=== PATIENT | female | born 1995 | race Caucasian/White ===

== ENCOUNTER 2023-01-17 04:30 | Inpatient (IN) | payer OTHER, SELFPAY ==
[2023-01-17] VITALS (105 sets, daily range): BP systolic 75–169; BP diastolic 41–155; PULSE 25–221; RESP 16–20; TEMP 36.4–37.1; O2SAT 64–100; BMI 28.5
[2023-01-17] MEDS: LACTATED RINGERS 1,000 ML 125 ML IV CONT ×3 (04:55→06:37)
[2023-01-17 05:02] LABS: Basophils Percent Auto 0.2 % (0.2-1.2); Eosinophils Absolute Auto 0.1 K/mm3 (0-0.3); Eosinophils Percent Auto 0.5 % (0-4.4); Hematocrit 40.7 % (37.0-47.0); Hemoglobin 13.7 g/dL (12.0-15.0); Immature Granulocyte Absolute 0.05 K/mm3 (0.00-0.031); Immature Granulocyte Percent A 0.5 % (0-0.5); Lymphocytes Absolute Auto 1.97 K/mm3 (0.9-3.2); Lymphocytes Percent Auto 17.8 % (18.3-44.2); Mean Corpuscular HGB Conc 33.7 g/dl (32-36); Mean Corpuscular Volume 92.1 fl (80-100); Monocytes Absolute Auto 0.6 K/mm3 (0.1-0.6); Monocytes Percent Auto 5.2 % (2.6-8.5); Neutrophils Absolute Auto 8.4 K/mm3 (1.3-6.7); Neutrophils Percent Auto 75.8 % (45.5-73.1); Platelet Count Result 200 k/mm3 (150-375); Red Blood Count 4.42 M/mm3 (4.2-5.4); Red Cell Distribution Width 13.2 % (11.5-14.5); White Blood Count 11.1 K/mm3 (4.5-10.0)
--- NOTE | 2023-01-17 05:23 | WPDANESEPPF ---
Anes - Initial Pre Proc Eval Procedure: Labor Epidural Date/Time: 01/17/23 05:23 Surgeon: Wes Keys MD Pre Op Diagnosis: Labor pain Pre Op Diagnosis: Contractions Patient Data Age: 27 Gender: F Height: 1.6 m Weight: 73 kg Last Vital Signs Pulse Ox 100 01/17/23 05:19 Allergies Allergy/AdvReac Type Severity Reaction Status Date / Time No Known Allergies Allergy Verified 07/23/22 10:07 Home Medications Medication Instructions Recorded Confirmed Type levothyroxine 112 mcg tablet 112 mcg PO DAILY #90 tabs 09/19/22 01/17/23 Rx (Synthroid) prenat.vits,will,iwl-oelv-htwar 1 tablet PO HS 12/21/22 12/21/22 History Laboratory Tests 01/17/23 04:54 WBC 11.1 H K/mm3 (4.5-10.0) RBC 4.42 M/mm3 (4.2-5.4) Hgb 13.7 g/dL (12.0-15.0) Hct 40.7 % (37.0-47.0) MCV 92.1 fl (80-100) MCH 31.0 pg (26-34) MCHC 33.7 g/dl (32-36) RDW 13.2 % (11.5-14.5) Plt Count 200 k/mm3 (150-375) MPV 11.0 H fl (7.4-10.4) Immature Gran % (Auto) 0.5 % (0-0.5) Neut % (Auto) 75.8 H % (45.5-73.1) Lymph % (Auto) 17.8 L % (18.3-44.2) [place] % (Auto) 5.2 % (2.6-8.5) Eos % (Auto) 0.5 % (0-4.4) Baso % (Auto) 0.2 % (0.2-1.2) Lymph # (Auto) 1.97 K/mm3 (0.9-3.2) [place] # (Auto) 0.6 K/mm3 (0.1-0.6) Eos # (Auto) 0.1 K/mm3 (0-0.3) Baso # (Auto) 0.0 K/mm3 (0.0-0.1) Abs Immat Gran (auto) 0.05 H K/mm3 (0.00-0.031) Absolute Neuts (auto) 8.4 H K/mm3 (1.3-6.7) Absolute Nucleated RBC 0.0 K/mm3 (0.0-0.012) Nucleated RBC % 0.0 % (0.0-0.2) RPR Pending Patient hx anesthesia problems: none Family hx anesthesia problems: none Results Review: All pre-operative results and documents have been reviewed as part of the pre-operative evaluation. [facility] Past Medical History Medical History Autoimmune thyroiditis Blood type A+ Eczema Generalized anxiety disorder Hypothyroidism Nontoxic diffuse goiter Overweight (BMI 25.0-29.9) Family History Family History Sibling Diabetes mellitus Father Family history of mental disorder Hypertension Mother Family history of anemia Grandparent Family history of mental disorder Social History Social History Smoking status: Never smoker Second hand tobacco smoke exposure: No Alcohol intake: never Substance use: never Lack of Transportation: No Lack of Food: Never True Current Housing: I Have Housing Concerned About Future Housing: No Difficulty Paying Gas/Electric Bills: No Difficulty Paying for Meds: No Currently Unemployed: No Education: High School Diploma/GED Difficulty w/ Childcare or Family Care: No Gender identity (if verbalized by the patient): Female Spiritual care concerns: No Anes - Eval Final PreProcedure Day of Procedure 01/17/23 05:23 Patient weight: normal Heart: regular rate and rhythm Lungs: clear to auscultation Airway: Mallampati scale class II Neurological: alert and oriented ASA classification: II Emergent: no Anesthetic plan: proceed Anesthesia type and monitoring: regional epidural and standard monitoring Results Review: All pre-operative results and documents have been reviewed as part of the pre-operative evaluation. Informed Consent: The patient's anesthetic plan and its attendant risks and benefits were discussed with the patient/family/POA. Questions were solicited and answers provided to the satisfaction of the patient/family/POA.
[2023-01-17] MEDS: PHENYLEPHRINE 1,000 MCG/10 ML SYRINGE 100 MCG IV PUSH ×3 (05:49→06:18)
--- NOTE | 2023-01-17 05:49 | WPDANESEPN ---
Anes - Epidural Procedure Note Date/Time: 01/17/23 05:49 Consent: I have discussed with the patient/family/POA, the placement of an epidural catheter and the use of epidural narcotic/local anesthetic for labor analgesia and/or postoperative pain management, including associated potential risks, benefits, complications and side effects. I have discussed alternative methods of labor analgesia and/or postoperative pain management. The patient/family/POA, understand(s) and wish(es) to proceed with epidural narcotic/local anesthetic for labor analgesia and/or postoperative pain management. Time-Out: A pre-procedural Time-Out was completed immediately before starting the procedure and confirmed: Patient Identification, Site, Procedure, Patient Position and the Availability of Requisite Equipment. Clinical Indications: Labor Pain Epidural Insertion Note Patient position: sitting Skin prep: chlorhexidine and sterile drape Needle: 18g Tuohy-Schliff Catheter: 20g Unstyleted Technique: Loss of resistance. Level of insertion: L4/5 Catheter skin daisy (cm): 9 Length in epidural space (cm): 4 Skin anesthesia: lidocaine 1% Test dose: 1.5% Lidocaine with 1:[id number] Epi, negative for subarachnoid Inj and negative for intravascular Inj Time of test dose: 05:36 Observations: tolerated well Complications: none
--- NOTE | 2023-01-17 07:26 | LDADM ---
This patient, Rosy Best, was admitted to Labor/Delivery/Recovery 106 on 01/17/23 at 04:30. Plans for labor, pain management and were discussed with patient. Patient/family oriented to hospital policies and general routines including ID bracelet, bed and alarms, visiting hours, pain management, procedures, bathroom and other care routines, personal items, smoking policy, room service/diet and guest tray routines, security routines, and visiting hours. Patient/Family are encouraged to report perceived risks to care and to ask questions if they do not understand what they are told or what they should do. See OBIX for further documentation.
--- NOTE | 2023-01-17 07:43 | PM.IMHP ---
H&P: HPI History of Present Illness Date/Time: 01/17/23 07:43 Chief Complaint: Labor at term Narrative: 27-year-old 2 para 1 whose last menstrual was 04/20/2022, EDC is 01/18/2025, presents at 39 and 6 7 weeks gestation in active labor. She has negative group B strep in the has been uncomplicated PMFSH Past Medical History Medical History Autoimmune thyroiditis Blood type A+ Eczema Generalized anxiety disorder Hypothyroidism Nontoxic diffuse goiter Overweight (BMI 25.0-29.9) Family History Family History Sibling Diabetes mellitus Father Family history of mental disorder Hypertension Mother Family history of anemia Grandparent Family history of mental disorder Social History Social History Smoking status: Never smoker Second hand tobacco smoke exposure: No Alcohol intake: never Substance use: never Lack of Transportation: No Lack of Food: Never True Current Housing: I Have Housing Concerned About Future Housing: No Difficulty Paying Gas/Electric Bills: No Difficulty Paying for Meds: No Currently Unemployed: No Education: High School Diploma/GED Difficulty w/ Childcare or Family Care: No Gender identity (if verbalized by the patient): Female Spiritual care concerns: No Meds Home Medications and Allergies Home Medications Medication Instructions Recorded Confirmed Type levothyroxine 112 mcg tablet 112 mcg PO DAILY #90 tabs 09/19/22 01/17/23 Rx (Synthroid) prenat.vits,will,sdx-seki-mfrhu 1 tablet PO HS 12/21/22 12/21/22 History Allergies Allergy/AdvReac Type Severity Reaction Status Date / Time No Known Allergies Allergy Verified 07/23/22 10:07 Vital Signs Vital Signs - 24 hr 01/17/23 04:55 01/17/23 05:00 01/17/23 05:05 Temperature Pulse Rate Respiratory Rate Blood Pressure Pulse Oximetry 99 100 100 Oxygen Delivery 01/17/23 05:09 01/17/23 05:14 01/17/23 05:17 Temperature Pulse Rate Respiratory Rate Blood Pressure Pulse Oximetry 100 100 100 Oxygen Delivery 01/17/23 05:19 01/17/23 05:19 01/17/23 05:19 Temperature Pulse Rate Respiratory Rate Blood Pressure Pulse Oximetry 100 100 100 Oxygen Delivery 01/17/23 05:24 01/17/23 05:25 01/17/23 05:25 Temperature Pulse Rate 126 H 89 Respiratory Rate Blood Pressure 115/94 H 104/86 Pulse Oximetry 100 100 86 L Oxygen Delivery 01/17/23 05:27 01/17/23 05:28 01/17/23 05:29 Temperature Pulse Rate 104 H 93 Respiratory Rate Blood Pressure 85/56 L 108/74 Pulse Oximetry 100 84 L Oxygen Delivery 01/17/23 05:30 01/17/23 05:31 01/17/23 05:32 Temperature Pulse Rate 86 86 Respiratory Rate Blood Pressure 120/73 120/64 Pulse Oximetry 95 97 Oxygen Delivery 01/17/23 05:35 01/17/23 05:37 01/17/23 05:37 Temperature Pulse Rate 88 Respiratory Rate Blood Pressure 112/53 L Pulse Oximetry 97 96 Oxygen Delivery 01/17/23 05:39 01/17/23 05:40 01/17/23 05:42 Temperature Pulse Rate 92 85 83 Respiratory Rate Blood Pressure 122/61 119/56 L 122/56 L Pulse Oximetry 100 Oxygen Delivery 01/17/23 05:45 01/17/23 05:47 01/17/23 05:48 Temperature Pulse Rate 104 H 81 89 Respiratory Rate Blood Pressure 103/58 L 90/45 L 75/41 L Pulse Oximetry 100 Oxygen Delivery 01/17/23 05:50 01/17/23 05:52 01/17/23 05:55 Temperature Pulse Rate 63 62 84 Respiratory Rate Blood Pressure 103/56 L 115/50 L 108/75 Pulse Oximetry 100 Oxygen Delivery 01/17/23 05:57 01/17/23 05:59 01/17/23 06:00 Temperature Pulse Rate 68 68 91 Respiratory Rate Blood Pressure 117/56 L 133/64 110/61 Pulse Oximetry 100 Oxygen Delivery 01/17/23 06:02 01/17/23 06:06 05
[2023-01-17 09:02] LABS: Rapid Plasma Reagin Non-Reactive (NonReactive)
[2023-01-17] MEDS: OXYTOCIN 30 UNITS/NS 500 ML 30 UNITS/500 ML BAG 999 UNITS IV CONT (09:30)
--- NOTE | 2023-01-17 09:38 | PM.OBPRVD ---
OB - Delivery Note Procedure Delivery date: 01/17/23 Induction method: None Delivery monitor: External FHT and External Uterine Route of delivery: Episiotomy description: None Laceration Description: Perineal - 1st Degree Delivery repair: vicryl Specimen: No Quantitative Blood Loss (ml): 60 Anesthesia type: Epidural Disposition: Floor [place] Baby Date of : 01/17/23 Time of : 09:27 Weeks of gestation at delivery: 39 Infant gender: Male Weight (pounds): 7 Weight (ounces): 7 presentation: vertex position: Right Occiput Anterior Placenta delivery description: Spontaneous Cord Vessel Description: 3 Vessels and Delayed Cord Clamping score one minute: 9 score five minutes: 9
[2023-01-17] MEDS: OXYTOCIN 30 UNITS/NS 500 ML 30 UNITS/500 ML BAG 125 UNITS IV CONT (10:04)
--- NOTE | 2023-01-17 12:54 | PC.NURSE ---
Patient transferred to post room #280 via ( W/C ). Support person present. Oriented to unit, room, information board, rooming in, admission packet and security measures. Patient verbalizes understanding.
[2023-01-17] MEDS: IBUPROFEN 600 MG TABLET PO ×2 (14:31→21:03)
[2023-01-17] MEDS: DOCUSATE SODIUM 100 MG CAPSULE PO (16:42)
[2023-01-18 00:16] VITALS: BP 100/55; PULSE 61; RESP 16; TEMP 36.6; O2SAT 99
[2023-01-18] MEDS: ACETAMINOPHEN 325 MG TABLET 650 MG PO (00:33)
[2023-01-18 05:12] VITALS: BP 83/70; PULSE 70; RESP 18; TEMP 36.7; O2SAT 98
[2023-01-18 05:54] LABS: Hematocrit 36.1 % (37.0-47.0)
--- NOTE | 2023-01-18 08:18 | PM.DS ---
DS: Admitting Diagnosis Discharge Date 01/18/2023 Admitting Diagnosis term DS: Discharge Diagnosis Discharge Diagnosis (1) : Code(s): Z34.90 - Encounter for supervision of normal , unspecified, unspecified trimester Status: Acute DS: Summary Hospital Course Reason for hospitalization: active labor at term Hospital Course: this multiparous patient was admitted at term in active labor. Underwent spontaneous vaginal delivery. Her 24hour course was unremarkable. She remained afebrile. She was , voiding without difficulty, eating regular diet, ambulating, and generally without complaints. Time Spent with Patient Time attestation: Total time spent providing and/or coordinating discharge services: Exam Const: General: cooperative, healthy appearing, comfortable and well groomed Orientation/consciousness: oriented to person, oriented to place and oriented to time HENMT: Head: normal to inspection Resp: Effort & Inspection: normal respiratory effort Cardio: Rate: regular rate Rhythm: regular rhythm Heart sounds: S1 normal heart sound present and S2 normal heart sound present GI: Inspection: normal to inspection DS: Data Data Completed and Pending Labs on day of discharge: Labs from last 24 hours 01/18/23 01/17/23 05:29 04:54 Hgb 12.0 Hct 36.1 L RPR Non-reactive Discharge Plan Discharge Attending physician on discharge: Wes Mann Discharging Clinician: Wes Mann Patient Disposition: Home, Self-Care Activity: may shower and pelvic rest Diet: heart healthy Wound Care Instructions: follow printed instructions Patient Instructions: Antibiotic Form Stand Alone Forms: General Discharge Information Follow-up/Referrals: Wes Mann MD [Physician] - Discharge Medications: No Action #2 Tablet 1 tablet PO HS levothyroxine [Synthroid] 112 mcg tablet 112 mcg PO DAILY Qty: 90 1RF Date of admission: 01/17/23 04:30 Primary Care Provider: Walter Meehan Admitting Provider: Wes Mann Attending physician on admission: Wes Mann Condition: Stable
--- NOTE | 2023-01-18 08:21 | PM.OBPNVD ---
OB - PN: Subj Subjective Date/time seen: 01/18/23 08:21 Patient comments: no complaints and pain well controlled baby status: doing well and nursing well OB - PN: Obj Data Labs 01/18/23 05:29 Labs: Laboratory Results - last 24 hr 01/17/23 01/18/23 04:54 05:29 Hgb 12.0 Hct 36.1 L RPR Non-reactive OB - PN A/P Plan day: 1 Plan: routine care, discharge home and follow up 6 weeks Time Spent With Patient Time: Total time spent is greater than 50% in coordination of care (as documented) at patient's floor/unit and/or counseling patient: Time with patient: less than 15 minutes Exam Const: General: cooperative, healthy appearing, comfortable and well groomed Nutritional Appearance: average body habitus Orientation/consciousness: oriented to person, oriented to place and oriented to time HENMT: Head: normal to inspection Resp: Effort & Inspection: normal respiratory effort Cardio: Rate: regular rate Rhythm: regular rhythm Heart sounds: S1 normal heart sound present and S2 normal heart sound present GI: Inspection: normal to inspection
[2023-01-18 08:50] VITALS: BP 115/79; PULSE 72; RESP 18; TEMP 36.5; O2SAT 99
[2023-01-18] MEDS: DOCUSATE SODIUM 100 MG CAPSULE PO (08:58)
[2023-01-18] MEDS: MULTIVIT/MIN/PREN/FOL AC/IRON TABLET 1 TAB PO (08:58)
[2023-01-18] MEDS: IBUPROFEN 600 MG TABLET PO (08:58)
[2023-01-18] MEDS: LANOLIN (LANSINOH) 7.5 GM CREAM 1 APPLIC TOPICAL (08:59)
--- NOTE | 2023-01-18 12:00 | PC.NURSE ---
Patient viewed the discharge video Mother & Baby Care, The First Two Weeks . Patient was given the opportunity and encouraged to ask questions. Patient verbalized understanding of information shared and has been given the mother/baby guide for home reference.
[2023-01-21 09:27] VITALS: BP 116/71; PULSE 79; TEMP 36.3
== END 2023-01-18 13:11 | disposition home or self-care (01) | DRG 560 ==
LOC: ANHLDR 06:09 → ANHOB2 13:02
PROVIDERS: Admitting Provider Obstetrics & Gynecology; PCP Family Medicine; Visit Provider Obstetrics & Gynecology
DX: O70.0 First degree perineal laceration during delivery (principal); Z37.0 Single live birth; Z3A.39 39 weeks gestation of pregnancy
CPT/HCPCS: 36415; 85014; 85018; 85025; 86592; 86850; 86900; 86901; A9270; J2370; J2590; J2795; J7120

== ENCOUNTER 2023-04-13 10:39 | Emergency (ER) | payer MEDICAID, SELFPAY ==
--- NOTE | 2023-04-13 10:47 | ED.WOUNDLAC ---
HPI - Wound/Laceration General Chief Complaint: Wound/Laceration Stated Complaint: stitches reopened Time Seen by Provider: 04/13/23 10:52 Source: patient Mode of arrival: ambulatory Limitations: no limitations History of Present Illness HPI narrative: 27-year-old female presented for complaint of open wound to the right posterior shoulder. Patient had sutures removed from this site yesterday after a mole was removed by PCP 1 week prior. She states Steri-Strips were applied after the sutures were removed, however last night the Steri-Strips follow-up in the wound popped open. She endorses she has a 3-month-old and she is right-hand dominant. denies bleeding or drainage, pain, streaking or fever. Related Data Home Medications Medication Instructions Recorded Confirmed prenat.vits,will,fvr-djyu-qzrgy 1 tablet PO HS 12/21/22 04/13/23 Allergies Allergy/AdvReac Type Severity Reaction Status Date / Time No Known Allergies Allergy Verified 04/13/23 10:48 Review of Systems Review of Systems: CONSTITUTIONAL: Denies body aches, fever, chills, or sweats. EYES: Denies visual changes, redness, or discharge. ENT: Denies rhinorrhea, congestion CARDIOVASCULAR: Denies chest pain, palpitations, or edema. RESPIRATORY: Denies cough or dyspnea. GASTROINTESTINAL: Denies abdominal pain, nausea, vomiting, or diarrhea. SKIN: reports skin wound right shoulder MUSCULOSKELETAL: Denies back pain, joint pain, or myalgia. NEUROLOGIC: Denies headache, numbness, tingling, or weakness. [facility] Past Medical History Medical History Autoimmune thyroiditis Blood type A+ Eczema Generalized anxiety disorder Hypothyroidism Nontoxic diffuse goiter Overweight (BMI 25.0-29.9) Family History Family History Sibling Diabetes mellitus Father Family history of mental disorder Hypertension Mother Family history of anemia Grandparent Family history of mental disorder Social History Social History Smoking status: Never smoker Second hand tobacco smoke exposure: No Alcohol intake: never Substance use: never Lack of Transportation: No Lack of Food: Never True Current Housing: I Have Housing Concerned About Future Housing: No Difficulty Paying Gas/Electric Bills: No Difficulty Paying for Meds: No Currently Unemployed: No Education: High School Diploma/GED Difficulty w/ Childcare or Family Care: No Gender identity (if verbalized by the patient): Female Spiritual care concerns: No Comments At time of signature, I have reviewed and agree with nursing past medical, surgical, social and family history unless otherwise noted. Please see nursing chart for further information. There is no relevant family history pertinent to the presenting complaint Exam Narrative: GENERAL: Well-appearing HEAD: Normocephalic, atraumatic. EYES: conjunctivae clear, and EOMI. ENT: Mucous membranes moist. Oropharynx without edema, erythema or lesions. NECK: Supple. No lymphadenopathy CHEST: Clear to auscultation. HEART: Regular rate and rhythm. SKIN: Warm, dry. Right posterior shoulder with open wound [id number] gaping. No bleeding, drainage, warmth, induration or tenderness. NEURO: Alert and oriented x3. Extrem: Shoulder/upper arm images: 1. location of posterior shoulder open wound Course Course Emergency Course: Patient is aware of diagnosis, understands and agrees to treatment plan. Anticipatory guidance given. Patient agrees to follow-up as directed and is aware of reasons to seek care at the emergency department. Portions of this record may have been created with voice recognition software Level of Care: Express Care Visit Vital Signs Vital signs: Reviewed MDM - Wound/Laceration MDM Narrative Medical decision making narra
[2023-04-13 10:49] VITALS: BP 118/75; PULSE 56; RESP 16; TEMP 36.3; O2SAT 100
== END 2023-04-13 11:15 | disposition home or self-care (01) ==
PROVIDERS: Emergency Provider Nurse Practitioner Family; PCP Family Medicine
DX: T81.30XA Disruption of wound, unspecified, initial encounter (principal); E06.3 Autoimmune thyroiditis; E03.9 Hypothyroidism, unspecified
CPT/HCPCS: 99212; G0463

== ENCOUNTER 2024-01-08 09:19 | Day surgery (SDC) | payer OTHER, SELFPAY ==
[2023-12-18 11:58] VITALS: BMI 23.1
--- NOTE | 2024-01-08 07:37 | P.PNAN_ITS ---
Anes - Initial Pre Proc Eval Procedure: Operation Date: 01/08/24 10:30 Proposed Procedures p Colonoscopy - León Law MD Date/Time: 01/08/24 07:37 Surgeon: León Law MD Pre Op Diagnosis: Lft lower quadrant pain,constipation,IBS w/ Patient Data Age: 28 Gender: F Height: 1.6 m Weight: 58.967 kg Allergies Allergy/AdvReac Type Severity Reaction Status Date / Time No Known Allergies Allergy Verified 01/08/24 09:33 Home Medications Medication Instructions Recorded Confirmed Type levothyroxine 100 mcg tablet 100 mcg PO DAILY #90 tabs 07/29/23 01/08/24 Rx polyethylene glycol 3350 17 gram 17 g PO DAILY 12/24/23 01/08/24 History oral powder packet (Miralax) Patient hx anesthesia problems: none Family hx anesthesia problems: none Results Review: All pre-operative results and documents have been reviewed as part of the pre- operative evaluation. [facility] Past Medical History Medical History (Updated 01/08/24 @ 07:37 by Alvarado Kauffman DO) Anxiety Autoimmune thyroiditis Blood type A+ Eczema External hemorrhoid Generalized anxiety disorder Hypothyroidism Nontoxic diffuse goiter Overweight (BMI 25.0-29.9) Family History Family History Sibling Diabetes mellitus Father Family history of mental disorder Hypertension Mother Family history of anemia Grandparent Family history of mental disorder Social History Social History Smoking status: Never smoker Second hand tobacco smoke exposure: No Alcohol intake: never Substance use: never Substance use type: does not use Lack of Transportation: No Lack of Food: Never True Current Housing: I Have Housing Concerned About Future Housing: No Difficulty Paying Gas/Electric Bills: No Difficulty Paying for Meds: No Currently Unemployed: No Education: High School Diploma/GED Difficulty w/ Childcare or Family Care: No Gender identity (if verbalized by the patient): Female Spiritual care concerns: No Anes - Eval Final PreProcedure Day of Procedure 01/08/24 07:37 Patient weight: normal Heart: regular rate and rhythm Lungs: clear to auscultation and normal air movement Airway: Mallampati scale class II Neurological: alert and oriented Last oral intake: >/= 8 hours ASA classification: II Emergent: no Anesthetic plan: proceed Anesthesia type and monitoring: general GIVS and standard monitoring Results Review: All pre-operative results and documents have been reviewed as part of the pre- operative evaluation. Informed Consent: The patient's anesthetic plan and its attendant risks and benefits were discussed with the patient/family/POA. Questions were solicited and answers provided to the satisfaction of the patient/family/POA.
[2024-01-08 09:43] VITALS: BP 106/70; PULSE 90; RESP 18; TEMP 36.9; O2SAT 100; BMI 22.3
[2024-01-08] MEDS: LACTATED RINGERS 1,000 ML 150 ML IV CONT (09:56)
--- NOTE | 2024-01-08 10:16 | PM.HPGS ---
History of Present Illness History of Present Illness Consent: Risks, benefits, and alternatives have been discussed and questions answered. Patient agrees to proceed with procedure. Chief complaint: Lft lower quadrant pain,constipation,IBS w/ Narrative: Rosy Best is a 28 year old female presents for colonoscopy. Patient has intermittent constipation. This is associated with left lower quadrant pain. His after a bowel movement. Patient denies any bleeding. She has had no weight loss. Family history noncontributory . Has been referred for colonoscopy. Review of Systems Review of Systems: All systems reviewed & are unremarkable except as noted in HPI and below PMFSH Past Medical History Medical History (Updated 01/08/24 @ 07:37 by Alvarado Kauffman, ) Anxiety Autoimmune thyroiditis Blood type A+ Eczema External hemorrhoid Generalized anxiety disorder Hypothyroidism Nontoxic diffuse goiter Overweight (BMI 25.0-29.9) Family History Family History Sibling Diabetes mellitus Father Family history of mental disorder Hypertension Mother Family history of anemia Grandparent Family history of mental disorder Social History Social History Smoking status: Never smoker Second hand tobacco smoke exposure: No Alcohol intake: never Substance use: never Substance use type: does not use Lack of Transportation: No Lack of Food: Never True Current Housing: I Have Housing Concerned About Future Housing: No Difficulty Paying Gas/Electric Bills: No Difficulty Paying for Meds: No Currently Unemployed: No Education: High School Diploma/GED Difficulty w/ Childcare or Family Care: No Gender identity (if verbalized by the patient): Female Spiritual care concerns: No Meds Home Medications and Allergies Home Medications Medication Instructions Recorded Confirmed Type levothyroxine 100 mcg tablet 100 mcg PO DAILY #90 tabs 07/29/23 01/08/24 Rx polyethylene glycol 3350 17 gram 17 g PO DAILY 12/24/23 01/08/24 History oral powder packet (Miralax) Allergies Allergy/AdvReac Type Severity Reaction Status Date / Time No Known Allergies Allergy Verified 01/08/24 09:33 Vital Signs Vital Signs - 24 hr 01/08/24 09:43 Temperature 98.4 F Pulse Rate 90 Respiratory Rate 18 Blood Pressure 106/70 Pulse Oximetry 100 Oxygen Delivery Room Air Exam Narrative: Physical exam reveals patient to be alert. Vital signs stable. HEENT exam is unremarkable. Patient is anicteric. Lungs are clear to auscultation and percussion heart is without murmur or extra sounds. Abdomen bowel sounds are present soft nontender with no hepatosplenomegaly. Digital external rectal exam normal. Assessment and Plan Assessment and plan (1) Constipation: Code(s): K59.00 - Constipation, unspecified Status: Acute Assessment and Plan: Patient with constipation and occasional left lower quadrant pain associated with this. Plan for stool softener such as Metamucil be supplemented with MiraLax 17g p.o. daily if needed. Colonoscopy requested will be performed today. (2) Left lower quadrant pain: Code(s): R10.32 - Left lower quadrant pain Status: Acute Assessment and Plan: Pain appears to be associated with bowel movements. Plan to treat with stool softeners and laxatives.
[2024-01-08 11:54] VITALS: BP 86/52; PULSE 85; RESP 18; O2SAT 100
[2024-01-08 12:05] VITALS: BP 88/53; RESP 17; O2SAT 99
[2024-01-08 12:15] VITALS: BP 93/57; PULSE 58; RESP 16; O2SAT 100
--- NOTE | 2024-01-08 13:35 | WPDANESPN ---
Anes - Prog Note Post-Op Date/Time: 01/08/24 13:35 Cardiovascular status: normal Respiratory status: normal Airway patency: baseline Mental status: baseline Post-Op hydration status: normal Vital Signs: Last Vital Signs Temp 36.9 C 01/08/24 09:43 Pulse 58 L 01/08/24 12:15 Resp 16 01/08/24 12:15 BP 93/57 L 01/08/24 12:15 Pulse Ox 100 01/08/24 12:15 O2 Del Method Room Air 01/08/24 12:15 Pain Score (VAS): 0 I/O: Intake & Output 01/07/24 01/08/24 01/08/24 23:59 07:59 15:59 Intake Total 500 Balance 500 Post-procedural complaints: none Patient Feedback: Patient satisfied with anesthetic care. Other Findings: Patient vital signs back to baseline. Patient denies nausea and vomiting. Patient's pain under control. Patient OK for discharge.
== END 2024-01-08 12:32 | disposition home or self-care (01) ==
PROVIDERS: PCP Family Medicine; Visit Provider Internal Medicine Gastroenterology
PROC: 0DJD8ZZ Inspection of Lower Intestinal Tract, Via Natural or Artificial Opening Endoscopic (ICD-10-PCS; CPT 45378; principal; 2024-01-08 10:30)
DX: K59.00 Constipation, unspecified (principal); R10.32 Left lower quadrant pain
CPT/HCPCS: 45378

== ENCOUNTER 2024-07-05 16:01 | Emergency (ER) | payer SELFPAY ==
--- NOTE | 2024-07-05 16:02 | ED.URI ---
HPI - URI/Sore Throat General Chief Complaint: Upper Respiratory Infection Stated Complaint: Sore Throat Time Seen by Provider: 07/05/24 16:41 Source: patient, RN notes reviewed and old records reviewed Mode of arrival: ambulatory Limitations: no limitations History of Present Illness HPI Narrative: 28-year-old female presents to the [facility] with a sore throat since Saturday, 4 days. Has been taking Tylenol. Also reports generalized body aches intermittently. Denies fevers. No other symptoms. Onset (ago): day(s) (4) Treatments prior to arrival: acetaminophen Related Data Home Medications Medication Instructions Recorded Confirmed polyethylene glycol 3350 17 gram 17 g PO DAILY 12/24/23 07/05/24 oral powder packet (Miralax) Allergies Allergy/AdvReac Type Severity Reaction Status Date / Time No Known Allergies Allergy Verified 07/05/24 16:14 Review of Systems Review of Systems: All systems reviewed & are unremarkable except as noted in HPI and below Constitutional: Constitutional: Reports no additional constitutional complaints ENT: Reports as per HPI and Reports sore throat Cardiovascular: Cardiovascular: Reports no additional cardiovascular complaints, Denies chest pain and Denies dyspnea Respiratory: Respiratory: Reports no additional respiratory complaints, Denies chest congestion, Denies cough and Denies dyspnea Gastrointestinal: Gastrointestinal: Reports no additional gastrointestinal complaints, Denies abdominal pain, Denies nausea and Denies vomiting Musculoskeletal: Musculoskeletal: Reports no additional musculoskeletal complaints Integumentary/Breasts: Skin/Breast: Reports system reviewed and no additional complaints, except as docu PMFSH Past Medical History Medical History Anxiety Autoimmune thyroiditis Blood type A+ Eczema External hemorrhoid Generalized anxiety disorder Hypothyroidism Nontoxic diffuse goiter Overweight (BMI 25.0-29.9) Family History Family History Sibling Diabetes mellitus Father Family history of mental disorder Hypertension Mother Family history of anemia Grandparent Family history of mental disorder Social History Social History Smoking status: Never smoker Second hand tobacco smoke exposure: No Alcohol intake: never Substance use: never Substance use type: does not use Lack of Transportation: No Lack of Food: Never True Current Housing: I Have Housing Concerned About Future Housing: No Difficulty Paying Gas/Electric Bills: No Difficulty Paying for Meds: No Currently Unemployed: No Education: High School Diploma/GED Difficulty w/ Childcare or Family Care: No Gender identity (if verbalized by the patient): Female Spiritual care concerns: No Comments At the time of my signature, I reviewed and agree with the nursing past medical, surgical, social, and family history. There is no relevant family history pertinent to the patient complaint. Exam Const: General: cooperative, healthy appearing, comfortable, no acute distress, well developed, alert and well nourished Nutritional Appearance: well nourished Orientation/consciousness: patient oriented x3 Limitations: no limitations HENMT: Head: normal to inspection Ears: hearing grossly normal bilaterally, external ears normal, TM's normal bilaterally, EAC's normal, mastoids normal and no periauricular adenopathy Face/Nose/Sinus: Normal external nose present, normal facial exam and face symmetric Face and sinus: normal facial exam and face symmetric Mouth: Yes Normal oral and palatal mucosa present, Yes lip normal and Yes tongue normal Throat: tonsils normal, uvula midline, postnasal drainage and no uvular edema Eyes: General: appearance normal, both eyes and all related structures Alignment and Po
[2024-07-05 16:15] VITALS: BP 100/63; PULSE 86; RESP 16; TEMP 36.7; O2SAT 99
[2024-07-05 16:43] LABS: EDSTREPNEGPOS1 Negative (Negative)
== END 2024-07-05 16:54 | disposition home or self-care (01) ==
PROVIDERS: Emergency Provider Nurse Practitioner; PCP Family Medicine
DX: J02.9 Acute pharyngitis, unspecified (principal); R09.82 Postnasal drip; E03.9 Hypothyroidism, unspecified; E06.3 Autoimmune thyroiditis
CPT/HCPCS: 87081; 87880; 99213; G0463

== ENCOUNTER 2025-07-13 07:38 | Outpatient (CLI) | payer OTHER, SELFPAY ==
--- NOTE | ~2025-07-13 | CT_ITS ---
EXAMINATION: CT chest abdomen pelvis w con DATE: 07/13/2025 07:55 INDICATION: Abdominal pain. Separation of muscle. TECHNIQUE: Computed tomography (CT) of the chest, abdomen, and pelvis was performed with 100 mL Omnipaque 350 intravenous contrast. Automated exposure control and iterative reconstruction technique were employed. The dose-length product was 323.63 mGy-cm. COMPARISON: None FINDINGS: CHEST CT: The lungs demonstrate mild dependent atelectasis. No pleural effusion. The heart size is normal. No pericardial effusion. There is mild thoracic spondylosis. ABDOMEN/PELVIS CT: The liver, gallbladder, spleen, pancreas, adrenal glands, and kidneys are normal. There are no dilated loops of bowel. The appendix is visualized. There are no pathologically enlarged lymph nodes. There is physiologic fluid in the pelvis. There is mild lumbar spondylosis. IMPRESSION: 1. No etiology for the patient's symptoms. Reviewed, dictated and finalized at location E.
== END 2025-07-13 07:39 | disposition home or self-care (01) ==
PROVIDERS: PCP Family Medicine; Visit Provider Nurse Practitioner Family
DX: M62.08 Separation of muscle (nontraumatic), other site (principal); R10.10 Upper abdominal pain, unspecified
CPT/HCPCS: 71260; 74177; Q9967